=== PATIENT | female | born 1990 | race Caucasian/White ===

== ENCOUNTER → 2017-10-26 10:06 | Outpatient (CLI) | payer OTHER, SELFPAY ==
--- NOTE | 2017-10-26 | DI.US.S_ITS ---
PROCEDURE: US OB >= 14 WEEKS FETUS INDICATIONS: ANATOMY SCAN OUTSIDE/PRIOR DATING DATA: Last menstrual period (LMP): Unknown. LMP-based estimated date of delivery (SUNITA): Unknown. Estimated date of delivery (SUNITA) from first dating scan: Template for 02/2018. TECHNIQUE: Real-time scanning was performed of the fetus, with image documentation and biometric measurements. Endovaginal scanning: Not performed COMPARISON: None. FINDINGS: General: A single living intrauterine gestation is present. Presentation: Breech Placenta: Placental position is posterior/fundal, without previa. Amniotic fluid index: 8.1 cm, normal range is 5-24 cm. heart rate: 152 beats per minute. Maternal cervical canal: 3.1 cm long. Normal lower limit is 2.5 cm. biometrics: Biparietal diameter: 3.6 CM Head circumference: 14.2 CM Abdominal circumference: 12.2 CM Femur length: 2.7 CM Estimated gestational age from initial scan: not applicable. Composite gestational age from present scan: 17 weeks and 4 days Estimated weight and percentile: 214 g, 74% Measurement variability for biometric dating: +/- 7 days from 14 weeks to 15 weeks 6 days gestation, +/- 10 days from 16 weeks to 21 weeks 6 days gestation, +/- 2 weeks from 22 weeks to 27 weeks 6 days gestation, +/- 3 weeks for 28 weeks gestation or later. weight reference: 4500 g or EFW >90/95% is considered macrosomia or large for gestational age. EFW <10% is small for gestational age. EFW 5% or less is considered intra-uterine growth restriction. Anatomic survey: Neuro: Ventricles are non-dilated at less than 10 mm. Cisterna magna is normal at 3-11 mm. Cerebellum is normal in size and morphology. Nuchal skin fold: Normal at less than 6 mm between 14-21 weeks gestational age. Face: Nose and lips, facial profile are not well seen. Spine: Not well-seen. Heart: Heart is not well seen tracts. Diaphragm: Diaphragm is intact. Stomach: Left-sided stomach is present. Kidneys: No hydronephrosis. Normal is less than 5 mm in 2nd trimester, less than 7 mm in 3rd trimester. Cord: 3-vessel cord has orthotopic insertion. Bladder: Normal in size. Extremities: All 4 extremities identified. IMPRESSION: 1. Single intrauterine gestation with estimated gestational age of 17 weeks and 4 days. 2. Please note the face, spine, and heart are poorly seen and cannot be evaluated. Recommend attention to these sites on followup studies. Otherwise sonographically normal anatomy. Dictated by: Boni Muniz M.D. on 10/26/2017 at 14:47 Approved by: Boni Muniz M.D. on 10/26/2017 at 14:51
== END ==
PROVIDERS: Visit Provider Obstetrics & Gynecology
DX: Z34.92 Encounter for supervision of normal pregnancy, unspecified, second trimester (principal); Z3A.17 17 weeks gestation of pregnancy
CPT/HCPCS: 76811